=== PATIENT | male | born 1980 | race American Indian/Alaskan Native ===

== ENCOUNTER 2020-04-11 18:33 | Emergency (ER) | payer SELFPAY ==
--- NOTE | 2020-04-11 19:01 | Event Note ---
ED Screening Note ED Screening Note: 39 year old male pt presents to ED w/ complaints of non-traumatic headache, generalized weakness, right-sided chest/abdominal discomfort, and nausea starting approximately eight hours ago. Pt states symptoms began while he was lifting/unloading equipment at work. No preceding fall, trauma, or injury. No new foods or medications. No sick contacts. No significant PMHx. No history of similar symptoms. Denies fever, chills, shortness of breath, palpitations, syncope, seizure, rectal bleeding, paresthesias, neck pain. Denies all other complaints at this time. General: Awake, appropriately interactive, no acute distress. Cardiovascular: Regular rate and rhythm. Pulses palpable and equal bilaterally. Pulmonary: No respiratory distress. Clear to auscultation bilaterally. Patient is speaking normally without use of accessory muscles. Neurological: No facial asymmetry. Speech is clear. Follows commands. Patient is alert and oriented. Strength and sensation intact throughout. Musculoskeletal: Moves all four extremities spontaneously with normal range of motion. Ambulatory without assistance. This initial assessment/diagnostic orders/clinical plan/treatment(s) is/are subject to change based on patients health status, clinical progression and re- assessment by fellow clinical providers in the ED. Further treatment and workup at subsequent clinical providers discretion. Patient/guardian urged not to elope from the ED as their condition may be serious if not clinically assessed and managed.
[2020-04-11 19:17] LABS: Basophils % (Auto) 0.3 % (0.0-1.8); Eosinophils # (Auto) 0.1 K/mm3 (0.0-0.4); Eosinophils % (Auto) 1.2 % (0.0-4.3); Hematocrit 40.7 % (35.5-45.6); Hemoglobin 13.8 gm/dl (11.8-15.2); Lymphocytes # (Auto) 2.2 K/mm3 (1.2-5.4); Lymphocytes % (Auto) 37.1 % (13.4-35.0); Mean Corpuscular HGB Conc 34 % (32-34); Mean Corpuscular Volume 90 fl (84-94); Monocytes # (Auto) 0.7 K/mm3 (0.0-0.8); Monocytes % (Auto) 11.5 % (0.0-7.3); Platelet Count 278 K/mm3 (140-440); Red Blood Count 4.55 M/mm3 (3.65-5.03); Red Cell Distribution Width 13.4 % (13.2-15.2)
[2020-04-11 19:34] LABS: Albumin 4.5 g/dL (3.9-5); BUN/Creatinine Ratio 20; Blood Urea Nitrogen 18 mg/dL (9-20); Calcium 9.4 mg/dL (8.4-10.2); Hemolysis Index 9
[2020-04-11 19:36] LABS: Alanine Aminotransferase < 5 units/L (7-56)
--- NOTE | 2020-04-11 19:53 | XRay Report ---
CHEST 2 VIEWS INDICATION / CLINICAL INFORMATION: right side chest pain. COMPARISON: None available. FINDINGS: SUPPORT DEVICES: None. HEART / MEDIASTINUM: No significant abnormality. LUNGS / PLEURA: No significant pulmonary or pleural abnormality. No pneumothorax. ADDITIONAL FINDINGS: No significant additional findings. IMPRESSION: No significant abnormality Signer Name: Dao Bosch MD FACR Signed: 04/11/2020 7:48 PM Workstation Name: [id number]
[2020-04-12 00:35] VITALS: BP 129/63
[2020-04-12 00:40] LABS: Bilirubin,Urine NEG (Negative); Blood,Urine NEG (Negative); Color,Urine Yellow (Yellow); Hyaline Casts,Urine 1 /LPF; Mucus,Urine 2+ /HPF
--- NOTE | 2020-04-12 00:49 | Emergency Department Report ---
HPI - General Chief Complaint: Headache Time Seen by Provider: 04/12/20 00:25 - HPI HPI: This is a 39-year-old -Fil[place]ino male presents to the emergency department with a complaint of some lightheadedness that started while the patient was at work. Patient says that he felt like he might pass out and was unable to keep up with his normal pace at work. At the time of his triage the patient also had complained of a generalized headache, some shortness of breath and stomach pain. For me, at the time of my initial examination, the patient just complained of the lightheadedness, near syncope, and back pain. Overall the patient says that he is feeling improved. He did not take anything for his symptoms prior to presentation. He denies any fever, vision change, chest pain, lower extremity swelling. He is a tobacco smoker but denies any illicit drug use. He denies any past medical history. No recent travel or sick contacts at home. ED Past Medical Hx - Past Medical History Previous Medical History?: No - Surgical History Past Surgical History?: No - Social History Smoking Status: Current Every Day Smoker Substance Use Type: Alcohol, Marijuana ED Review of Systems ROS: Stated complaint: HEADACHE/ABD PAIN/WEAKNESS Other details as noted in HPI Comment: All other systems reviewed and negative Constitutional: weakness. denies: chills, fever Eyes: denies: eye pain, vision change ENT: denies: ear pain, throat pain Respiratory: denies: cough, wheezing Cardiovascular: denies: chest pain, palpitations Gastrointestinal: denies: nausea, vomiting Genitourinary: denies: dysuria, discharge Musculoskeletal: back pain. denies: arthralgia Skin: denies: rash, lesions Neurological: headache (Resolved). denies: numbness, paresthesias Physical Exam - Physical Exam Vital Signs: Vital Signs 04/11/20 04/12/20 18:42 00:34 Temperature 98.2 F 98.1 F Pulse Rate 59 L 53 L Respiratory 16 19 Rate Blood Pressure 119/68 129/63 [Right] O2 Sat by Pulse 98 100 Oximetry Physical Exam: GENERAL: The patient is well-developed well-nourished. HENT: Normocephalic. Atraumatic. Patient has moist mucous membranes. EYES: Extraocular motions are intact. No nystagmus. NECK: Supple. Trachea is midline. CHEST/LUNGS: Clear to auscultation. There is no respiratory distress noted. HEART/CARDIOVASCULAR: Regular. There is no tachycardia. There is no murmur. ABDOMEN: Abdomen is soft, nontender. Patient has normal bowel sounds. There is no abdominal distention. SKIN: Skin is warm and dry. NEURO: The patient is awake, alert, and oriented. The patient is cooperative. The patient has no focal neurologic deficits. Normal speech. Cranial nerves II through XII grossly intact. No facial asymmetry. No pronator drift or dysmetria. MUSCULOSKELETAL: There is no tenderness or deformity. There is no limitation range of motion. Muscle strength out of 5 upper and lower extremities bilaterally. ED Course Vital Signs 04/11/20 04/12/20 18:42 00:34 Temperature 98.2 F 98.1 F Pulse Rate 59 L 53 L Respiratory 16 19 Rate Blood Pressure 119/68 129/63 [Right] O2 Sat by Pulse 98 100 Oximetry ED Medical Decision Making - Lab Data Result diagrams: 04/11/20 19:05 04/11/20 19:05 Lab Results 04/11/20 04/11/20 04/12/20 Range/Units 19:05 19:05 00:25 WBC 5.9 (4.5-11.0) K/mm3 RBC 4.55 (3.65-5.03) M/mm3 Hgb 13.8 (11.8-15.2) gm/dl Hct 40.7 (35.5-45.6) % MCV 90 (84-94) fl MCH 30 (28-32) pg MCHC 34 (32-34) % RDW 13.4 (13.2-15.2) % Plt Count 278 (140-440) K/mm3 Lymph % (Auto) 37.1 H (13.4-35.0) % Randolph % (Auto) 11.5 H (0.0-7.3) % Eos % (Auto) 1.2 (0.0-4.3) % Baso % (Auto) 0.3 (0.0-1.8) % Lymph # (Auto) 2.2 (1.2-5.4) K/mm3 Randolph # (Auto) 0.7 (0.0-0.8) K/mm3 Eos # (Auto) 0.1 (0.0-0.4) K/mm3 Baso # (Auto) 0.0 (0.0-0.1) K/mm3 Seg Neutrophils % 49.9 (40.0-70.0) % Seg Neutrophils # 3.0 (1.8-7.7) K/mm3 Sodium 136 L (137-145) mmol/L Potassium 4.3 (3.6-5.0) mmol/L Chloride 100.4 (98-107) mmol/L Carbon Dioxide 28 (22-30) mmol/L Anion Gap 12 mmol/L BUN 18 (9-20) mg/dL Creatinine 0.9 (0.8-1.3) mg/dL Estimated GFR > 60 ml/min BUN/Creatinine Ratio 20 % Glucose 90 (75-100) mg/dL Calcium 9.4 (8.4-10.2) mg/dL Magnesium 1.90 (1.7-2.3) mg/dL Total Bilirubin 0.90 (0.1-1.2) mg/dL AST 37 (5-40) units/L ALT < 5 L (7-56) units/L Alkaline Phosphatase 76 (35-129) units/L Troponin T < 0.010 (0.00-0.029) ng/mL Total Protein 7.2 (6.3-8.2) g/dL Albumin 4.5 (3.9-5) g/dL Albumin/Globulin Ratio 1.7 % TSH (0.270-4.200) mlU/mL Urine Color Yellow (Yellow) Urine Turbidity Clear (Clear) Urine pH 5.0 (5.0-7.0) Ur Specific [place] 1.023 (1.003-1.030) Urine Protein 30 mg/dl (Negative) mg/dL Urine Glucose (UA) Neg (Negative) mg/dL Urine Ketones Neg (Negative) mg/dL Urine Blood Neg (Negative) Urine Nitrite Neg (Negative) Urine Bilirubin Neg (Negative) Urine Urobilinogen 4.0 (<2.0) mg/dL Ur Leukocyte Esterase Neg (Negative) Urine WBC (Auto) 9.0 H (0.0-6.0) /HPF Urine RBC (Auto) 1.0 (0.0-6.0) /HPF U Epithel Cells (Auto) < 1.0 (0-13.0) /HPF Hyaline Casts 1 /LPF Urine Mucus 2+ /HPF 04/12/20 Range/Units 01:01 WBC (4.5-11.0) K/mm3 RBC (3.65-5.03) M/mm3 Hgb (11.8-15.2) gm/dl Hct (35.5-45.6) % MCV (84-94) fl MCH (28-32) pg MCHC (32-34) % RDW (13.2-15.2) % Plt Count (140-440) K/mm3 Lymph % (Auto) (13.4-35.0) % Randolph % (Auto) (0.0-7.3) % Eos % (Auto) (0.0-4.3) % Baso % (Auto) (0.0-1.8) % Lymph # (Auto) (1.2-5.4) K/mm3 Randolph # (Auto) (0.0-0.8) K/mm3 Eos # (Auto) (0.0-0.4) K/mm3 Baso # (Auto) (0.0-0.1) K/mm3 Seg Neutrophils % (40.0-70.0) % Seg Neutrophils # (1.8-7.7) K/mm3 Sodium (137-145) mmol/L Potassium (3.6-5.0) mmol/L Chloride (98-107) mmol/L Carbon Dioxide (22-30) mmol/L Anion Gap mmol/L BUN (9-20) mg/dL Creatinine (0.8-1.3) mg/dL Estimated GFR ml/min BUN/Creatinine Ratio % Glucose (75-100) mg/dL Calcium (8.4-10.2) mg/dL Magnesium (1.7-2.3) mg/dL Total Bilirubin (0.1-1.2) mg/dL AST (5-40) units/L ALT (7-56) units/L Alkaline Phosphatase (35-129) units/L Troponin T (0.00-0.029) ng/mL Total Protein (6.3-8.2) g/dL Albumin (3.9-5) g/dL Albumin/Globulin Ratio % TSH 0.708 (0.270-4.200) mlU/mL Urine Color (Yellow) Urine Turbidity (Clear) Urine pH (5.0-7.0) Ur Specific [place] (1.003-1.030) Urine Protein (Negative) mg/dL Urine Glucose (UA) (Negative) mg/dL Urine Ketones (Negative) mg/dL Urine Blood (Negative) Urine Nitrite (Negative) Urine Bilirubin (Negative) Urine Urobilinogen (<2.0) mg/dL Ur Leukocyte Esterase (Negative) Urine WBC (Auto) (0.0-6.0) /HPF Urine RBC (Auto) (0.0-6.0) /HPF U Epithel Cells (Auto) (0-13.0) /HPF Hyaline Casts /LPF Urine Mucus /HPF - EKG Data -: EKG Interpreted by Me EKG shows normal: sinus rhythm (PACs), axis, intervals, QRS complexes (LVH), ST- T waves Rate: bradycardia (43 bpm) - EKG Data When compared to previous EKG there are: previous EKG unavailable Interpretation: other (Sinus bradycardia at 43 bpm, PACs, LVH. No ST elevation [place]) - Radiology Data Radiology results: image reviewed interpreted by me: Chest x-ray does not show any acute process. There are no pleural effusions, obvious pneumonia and there is no pneumothorax. No significant cardiomegaly. - Medical Decision Making This patient presents to the emergency department for what he describes as some lightheadedness and near syncope while at work. Through triage he had some other complaints including a headache, shortness of breath, abdominal pain, but he denies any of those symptoms at the time of my initial examination. On exami nation the patient does not have any focal, motor or sensory deficits and his cranial nerves are intact. Heart and lung sounds are normal to auscultation. The patient is resting comfortably. Chest x-ray does not show any pneumonia, pleural effusions, pneumothorax, focal consolidation, or any other acute process. EKG does not have any morphology consistent with ST elevation myocardial infarction or any dysrhythmia. It does show bradycardia with a heart rate of about 43 and some LVH. This bradycardia almost seems like an anomaly as the patient's heart rate has been in the 50s throughout most of his ED course. Labs have been mostly unremarkable including CBC, metabolic panel, negative tr oponin, normal thyroid function. Vital signs have been reassuring throughout his ED course including being afebrile. For all these reasons the patient appears safe for discharge home at this time. He has been instructed to follow-up with primary care. He has been given an outpatient referral for cardiology to follow-up regarding the bradycardia. He will return to the emergency department with any worsening of his symptoms or with any acute distress. Critical Care Time: No Critical care attestation.: If time is entered above; I have spent that time in minutes in the direct care of this critically ill patient, excluding procedure time. ED Disposition Clinical Impression: Lightheaded, Bradycardia, Generalized weakness Disposition: DC- TO HOME OR SELFCARE Is pt being admited?: No Condition: Stable Instructions: Near-Syncope, Fatigue, Bradycardia, Adult, Weakness Additional Instructions: Please follow-up with a primary care physician in the next few days. I have given you a referral for a local primary care physician and a primary care clinic. I have also given you a referral for a local packer and carry out, Dr. Hart, to follow- up regarding your slow heart rate. Return to the emergency department with any worsening of your symptoms, new or concerning symptoms not addressed during this current emergency department visit, or with any acute distress. Referrals: PRIMARY MD FISH [Primary Care Provider] - 2-3 Days ANDREW WOODY MD [Staff Physician] - 2-3 Days INDIO HART MD [Staff Physician] - 2-3 Days [facility] [Provider Group] - 2-3 Days Forms: Accompanied Note, Work/School Release Form(ED) Time of Disposition: 02:00
== END 2020-04-12 02:16 | disposition home or self-care (01) ==
LOC: ED 18:33
DX: R42 Dizziness and giddiness (principal); R00.1 Bradycardia, unspecified; R53.1 Weakness; F17.200 Nicotine dependence, unspecified, uncomplicated; F12.10 Cannabis abuse, uncomplicated
CPT/HCPCS: 36415; 71046; 80053; 81001; 83735; 84443; 84484; 85025; 87086; 93005